=== PATIENT | female | born 1950 | race Caucasian/White ===

== ENCOUNTER → 2024-03-10 15:01 | Outpatient (CLI) | payer MEDICARE, SELFPAY ==
--- NOTE | 2024-03-10 15:03 | DI.RAD.S_ITS ---
PROCEDURE: XR ELBOW RT MIN 3V INDICATIONS: Fall TECHNIQUE: 3 views of the elbow were acquired. COMPARISON: None. FINDINGS: Bones: No fractures or dislocations. No suspicious bony lesions. Soft tissues: No elbow joint effusion. No suspicious soft tissue calcifications. IMPRESSION: No acute bony abnormality or significant joint effusion. Dictated by: Shaquille Rutherford M.D. on 03/10/2024 at 16:14 Approved by: Shaquille Rutherford M.D. on 03/10/2024 at 16:15
--- NOTE | 2024-03-10 15:03 | DI.RAD.S_ITS ---
PROCEDURE: XR SHOULDER RT MIN 2V INDICATIONS: Fall TECHNIQUE: 3 views of the shoulder were acquired. COMPARISON: None. FINDINGS: Bones: No fractures or dislocations. No suspicious bony lesions. Visualized ribs appear intact. Glenohumeral and acromioclavicular joint space narrowing with associated osteophytosis. Surgical anchor in the greater tuberosity. Soft tissues: No suspicious soft tissue calcifications. IMPRESSION: No acute bony abnormality. Moderate to severe shoulder osteoarthritis. Dictated by: Shaquille Rutherford M.D. on 03/10/2024 at 16:15 Approved by: Shaquille Rutherford M.D. on 03/10/2024 at 16:15
== END ==
LOC: RAD 15:03
PROVIDERS: Referring Provider Nurse Practitioner Family; Visit Provider Nurse Practitioner Family
DX: M54.6 Pain in thoracic spine (principal); M25.511 Pain in right shoulder; M19.011 Primary osteoarthritis, right shoulder
CPT/HCPCS: 73030; 73080

== ENCOUNTER → 2024-05-08 07:59 | Outpatient (CLI) | payer MEDICARE, SELFPAY ==
--- NOTE | 2024-05-08 08:01 | DI.MRI.S_ITS ---
PROCEDURE: MR LUMBAR SPINE WO CON INDICATIONS: RADICULOPATHY,CERVICAL AND LUMBAR REGION TECHNIQUE: Noncontrast sagittal T1 spin echo and T2 fast echo, sagittal STIR, and T2 fast spin echo through the lumbar spine. In cases with scoliosis, additional coronal T2 fast spin echo may be performed. COMPARISON: None. FINDINGS: Image quality: Excellent. Alignment and Curvature: Grade 1 anterolisthesis of L4-5. There appears to be transitional anatomy with sacralization of the L5 vertebral body. The 1st non rib-bearing vertebral bodies designated L1.. Bone Marrow: Posterior spinal fixation spanning L4 through S1. Marrow is of normal overall signal. No acute vertebral body compression fractures. Spinal Cord: Conus medullaris terminates at the L1-L2 level. Visualized cord demonstrates normal signal and size. Paraspinous Soft Tissues: No paravertebral masses. T12-L1: Mild facet arthropathy. No central canal or neural foraminal stenosis. L1-L2: Disc desiccation and minimal disc bulge. Facet arthropathy. No central canal stenosis. Uoew-iw-lbmaehiu bilateral neural foraminal stenosis. L2-L3: Disc desiccation and mild diffuse disc bulge. Facet arthropathy and thickening of ligamentum flavum. Moderate to severe central canal stenosis. Narrowing of the lateral recesses with possible impingement of the descending L3 nerve roots. Moderate bilateral neural foraminal stenosis. L3-L4: Disc desiccation and mild disc bulge. Facet hypertrophy. Mild central canal stenosis. Mild bilateral neural foraminal stenosis. L4-L5: Anterolisthesis. Disc desiccation diffuse disc bulge. Mild central canal stenosis. There appears to be severe bilateral neural foraminal stenosis with impingement of the exiting nerve roots. Evaluation is limited secondary to hardware artifact. L5-S1: Transitional level. No central canal stenosis. No high-grade neural foraminal stenosis, however evaluation is limited secondary to hardware artifact. IMPRESSION: 1. Multilevel degenerative changes of the lumbar spine with posterior spinal fixation spanning L4 through S1. Grade 1 anterolisthesis of L4 on L5. 2. Moderate to severe central canal stenosis at L2-L3 with narrowing of the lateral recesses and possible impingement of the descending L3 nerve roots. 3. Likely severe bilateral neural foraminal stenosis at L4-5 with impingement of the exiting nerve roots, evaluation is limited secondary to hardware artifact. 4. Transitional vertebral body anatomy with sacralization of the L5 vertebral body. Recommend correlation with plain film prior to any intervention. Dictated by: Mehdi Baer M.D. on 05/08/2024 at 10:48 Approved by: Mehdi Baer M.D. on 05/08/2024 at 10:54
--- NOTE | 2024-05-08 08:01 | DI.MRI.S_ITS ---
PROCEDURE: MR CERVICAL SPINE WO CON INDICATIONS: RADICULOPATHY,CERVICAL AND LUMBAR REGION TECHNIQUE: Noncontrast sagittal T1 spin echo and T2 fast spin echo, sagittal STIR, foraminal oblique sagittal T2 fast spin echo, and axial gradient echo or T2 fast spin echo through the cervical spine. COMPARISON: None. FINDINGS: Image quality: Excellent. Alignment and Curvature: Straightening and mild reversal of the normal cervical lordosis. Bone Marrow: Ankylosis of the C4 through C6 vertebral bodies with posterior spinal fixation. Marrow demonstrates normal overall signal. Spinal Cord: Visualized spinal cord has normal size and signal. No cerebellar tonsillar herniation. Paraspinous Soft Tissues: No paravertebral masses. Prevertebral soft tissues are normal in thickness. C2-C3: Disc desiccation. No central canal stenosis. Facet uncovertebral arthropathy. Mild bilateral neural foraminal stenosis. C3-C4: Disc desiccation and posterior disc osteophyte complex with mild central disc protrusion. Mild central canal stenosis. Facet uncovertebral arthropathy. Moderate right and moderate to severe left neural foraminal stenosis. C4-C5: Ankylosis. No significant central canal stenosis. Facet arthropathy. Mild bilateral neural foraminal stenosis. C5-C6: Ankylosis. No significant central canal stenosis. Facet arthropathy. Eyvj-rw-jlzkyjlz bilateral neural foraminal stenosis. C6-C7: Disc desiccation and height loss. Posterior disc osteophyte complex. Moderate central canal stenosis. Facet and uncovertebral arthropathy. Severe right and moderate to severe left neural foraminal stenosis. C7-T1: Disc desiccation and mild posterior disc osteophyte complex. No significant central canal or neural foraminal stenosis. IMPRESSION: 1. Multilevel degenerative changes of the cervical spine status post C4 through C6 spinal fusion. 2. Moderate central canal stenosis at C6-C7. 3. Severe right and moderate to severe left neural foraminal stenosis at C6-C7. Moderate right and moderate to severe left neural foraminal stenosis at C3-C4. Dictated by: Mehdi Baer M.D. on 05/08/2024 at 10:36 Approved by: Mehdi Baer M.D. on 05/08/2024 at 10:48
== END ==
LOC: MRI 08:01
PROVIDERS: Referring Provider Acupuncturist; Visit Provider Acupuncturist
DX: M47.22 Other spondylosis with radiculopathy, cervical region (principal); M48.02 Spinal stenosis, cervical region; M47.26 Other spondylosis with radiculopathy, lumbar region; M43.16 Spondylolisthesis, lumbar region; M48.061 Spinal stenosis, lumbar region without neurogenic claudication; M43.27 Fusion of spine, lumbosacral region; Z98.1 Arthrodesis status
CPT/HCPCS: 72141; 72148

== ENCOUNTER → 2024-09-22 12:43 | Outpatient (CLI) | payer MEDICARE, MEDICAID, SELFPAY ==
--- NOTE | 2024-09-22 12:45 | DI.ECHO.S_ITS ---
[facility] : : [id number] : : [place] : : [id number] : : Phone: [phone] Echocardiogram Report + + :Name: YVAN MAJOR Study Date: 09/22/2024 Height: 59 in : :[facility] ReadingLocation: Weight: 170 lb : : Gender: Female BSA: 1.7 m2 : :: 1950 Age: 74 yrs BP: 119/75 mmHg: :Reason For Study: CORONARY ARTERY DISEASE : :Ordering Physician: JADON, : :PATRIZIA Russell Performed By: Phoebe Schwab : :Referring: PATRIZIA HAIRSTON : + + Interpretation Summary The ejection fraction is estimated to be 60-65%. Diastolic parameters suggest probable normal left ventricular diastolic function and normal filling pressures. The right ventricle is normal in size and function. There is mild tricuspid regurgitation. No valvular abnormalities. Pulmonary artery pressures cannot be estimated because of the lack of a measurable TR jet velocity but the IVC suggests a CVP of around 3 mmHg. Procedure: A two-dimensional transthoracic echocardiogram with color flow and Doppler was performed. The study quality was technically adequate. There is no prior echocardiogram noted for this patient. The patient was in sinus rhythm with heart rates between 75-81 bpm during the exam. Left Ventricle: The left ventricle is normal in size and wall thickness. The ejection fraction is estimated to be 60-65%. Diastolic parameters suggest probable normal left ventricular diastolic function and normal filling pressures. Right Ventricle: The right ventricle is normal in size and function. Atria: The left atrial size is normal. Right atrial size is normal. There is no Doppler evidence for an interatrial shunt. Mitral Valve: The mitral valve leaflets appear to open well. There is trace mitral regurgitation. Aortic Valve: The aortic valve is trileaflet. The aortic valve opens well. There is no aortic valve stenosis. No aortic regurgitation is present. Tricuspid Valve: The tricuspid valve leaflets are thin and pliable. There is mild tricuspid regurgitation. Pulmonary artery pressures cannot be estimated because of the lack of a measurable TR jet velocity but the IVC suggests a CVP of around 3 mmHg. Pulmonic Valve: The pulmonic valve leaflets are thin and pliable; valve motion is normal. There is mild pulmonic regurgitation. Great Vessels: The aortic root is normal size. The dimensions of the ascending aorta are normal. The IVC is of normal diameter and collapses greater than 50% with a sniff. This suggests a low right atrial pressure of 3 mm Hg. Pericardium/ Pleura There is no pericardial effusion. There is no pleural effusion. MMode/2D Measurements & Calculations LVIDd: 4.6 cm LVOT diam: 2.1 cm LVIDs: 2.8 cm Ao root diam: 3.2 cm FS: 40.1 % asc Aorta Diam: 3.2 cm IVSd: 0.87 cm Ao Arch Diam (Prox Trans): 2.3 cm LVPWd: 0.80 cm LV rod. diameter/BSA (cm/m^2): 2.7 LV sys. diameter/BSA (cm/m^2): 1.6 LA A2 area: 13.9 cm2 RA long axis: 4.7 cm LA A4 area: 17.5 cm2 RA area: 13.5 cm2 LA length (vol): 5.4 cm RA vol: 33.0 ml LA vol: 38.2 ml RA : 19.2 ml/m2 LA vol index: 22.2 ml/m2 IVC diam: 1.3 cm RVD1 (basal): 3.9 cm RVD2 (mid): 3.1 cm TAPSE: 2.2 cm Doppler Measurements & Calculations Ao V2 max: 149.3 cm/sec LVOT Max Preston: 101.1 cm/sec Ao V2 mean: 103.0 cm/sec LV V1 max P.1 mmHg Ao max P.9 mmHg LV V1 VTI: 23.8 cm Ao mean P.7 mmHg NARDA(I,D): 2.5 cm2 Ao V2 VTI: 32.9 cm NARDA(V,D): 2.3 cm2 sev ratio: 0.72 NARDA indexed to BSA (cm^2/m^2): 1.4 MV E max preston: 85.4 cm/sec TR max preston: 207.5 cm/sec MV A max preston: 82.9 cm/sec TR max P.2 mmHg MV E/A: 1.0 PA V2 max: 110.3 cm/sec Med Peak E' Preston: 11.1 cm/sec PA V2 mean: 72.2 cm/sec E/E' med: 7.7 PA mean P.3 mmHg Lat Peak E' Preston: 12.1 cm/sec PA pr(Accel): 32.8 mmHg E/E' lat: 7.0 E/e' average: 7.4 MV dec time: 0.21 sec SVLVOT): 81.8 ml Reading Physician:08:34 PM
--- NOTE | 2024-09-22 12:45 | DI.NM.S_ITS ---
PROCEDURE: NM NGOC PERF SPECT R&S PHARM Rest and pharmacological stress myocardial perfusion SPECT with gated imaging and ejection fraction RADIOPHARMACEUTICAL: 27.5 mCi Tc-99m tetrafosmin IV at rest and 26.0 mCi Tc-99m tetrafosmin IV at peak effect of pharmacological stress. [id number]-bxkbuhjb was performed. INDICATIONS: CAD TECHNIQUE: Radiopharmaceutical was injected at peak stress test, and also at rest. SPECT images were obtained. SPECT myocardial perfusion images were displayed in short axis, horizontal long axis, and vertical long axis views. Gated images were reviewed using [email or web address] software. COMPARISON: None. CARDIAC STRESS: A pharmacologic stress test was performed under the supervision of an attending staff, using an infusion of regadenoson 0.4 mg IV. Hemodynamic data: There is normal blood pressure and heart rate response to pharmacologic stress. Symptoms: The patient denied anginal chest pain. EKG: No diagnostic changes of ischemia; no ectopy. FINDINGS: Raw data: There is good myocardial uptake of radiotracer. No significant motion artifacts. Czjv-zd-oeemo ratio is 0.73 (normal is less than 0.38 for tetrafosmin tracer). Left ventricle function: Gated images demonstrate normal left ventricular wall thickening. No segmental wall motion abnormalities. No transient ischemic dilation; TID is 0.98 (normal less than 1.3). Left ventricle resting end diastolic volume is 90 mL. Left ventricle stress ejection fraction is >75%; normal range is above 45%. Myocardial perfusion: There is normal distribution of activity in the right and left ventricular myocardium. No fixed or reversible perfusion defects. IMPRESSION: Low risk study. No evidence of pharmacologic induced ischemia or scar. Normal LV size with hyperdynamic function. Dictated by: Patrizia Hairston D.O. on 09/24/2024 at 17:40 Approved by: Patrizia Hairston D.O. on 09/24/2024 at 17:41
== END ==
PROVIDERS: Referring Provider Internal Medicine Cardiovascular Disease; Visit Provider Internal Medicine Cardiovascular Disease
DX: I07.1 Rheumatic tricuspid insufficiency (principal); I25.10 Atherosclerotic heart disease of native coronary artery without angina pectoris
CPT/HCPCS: 78452; 93017; 93306; A9502; J2785

== ENCOUNTER → 2025-02-13 07:52 | Outpatient (CLI) | payer MEDICARE, MEDICAID, SELFPAY ==
--- NOTE | 2025-02-13 07:55 | DI.CT.S_ITS ---
PROCEDURE: CT LUMBAR MYELOGRAM INDICATIONS: LUMBAR RADICULOPATHY TECHNIQUE: After the intrathecal administration of 15 mL intrathecal contrast, 3 mm thick sections acquired from T12 to the sacrum. Sagittal and coronal reformats were then constructed. For radiation dose reduction, the following was used: automated exposure control. COMPARISON: [facility], MR, MR LUMBAR SPINE WO CON, 05/08/2024, 8:52. FINDINGS: Image quality: Excellent. Bones: Mild levocurvature. Grade 1 anterolisthesis of L4 on L5. Grade 1 anterolisthesis of L5 on S1. Posterior spinal fixation spanning L4 through S1. No spondylolysis or spondylolisthesis. No suspicious bony lesions. No acute fractures. The degenerative changes with multilevel disc bulges and facet arthropathy. Soft tissues: No retroperitoneal masses. Visualized aorta demonstrates normal caliber. Atherosclerotic vascular calcifications. Small hiatal hernia. Surgical clips in the epigastric region. Nonobstructing renal stones measuring up to 6 millimeters. Diverticulosis within the visualized colon. T12-L1: No central canal or neural foraminal stenosis. L1-L2: No central canal stenosis. At least mild bilateral neural foraminal stenosis. L2-L3: Moderate to severe central canal stenosis. Moderate bilateral neural foraminal stenosis. L3-L4: Mild central canal stenosis. Mild bilateral neural foraminal stenosis. L4-L5: Mild central canal stenosis. Severe bilateral neural foraminal stenosis. L5-S1: Transitional level. No central canal stenosis. Neural foramina appear patent. Miscellaneous: Small nodular focus within the anterior cauda equina nerve roots at L2-L3 measuring 3 x 2 millimeters (5/31). Nerve roots otherwise appear unremarkable throughout. No nerve root clumping to suggest arachnoiditis. IMPRESSION: Multilevel degenerative changes of the lumbar spine which are overall similar compared to prior MRI. Redemonstration of lower lumbar spine fixation hardware without evidence of hardware complication. Moderate to severe central canal stenosis L2-L3. Severe bilateral neural foraminal stenosis at L4-5. Transitional vertebral body anatomy with sacralization of L5, please refer to plain film prior to any intervention. There appears to be a nodular focus within the anterior cauda quadrant nerve roots at L2-L3 measuring 3 x 2 millimeters, in retrospect this was seen on prior MRI and is stable. 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 Consider follow-up MRI with and without contrast. Dictated by: Mehdi Baer M.D. on 02/15/2025 at 13:08 Approved by: Mehdi Baer M.D. on 02/15/2025 at 13:17
--- NOTE | 2025-02-13 08:20 | DI.RAD.S_ITS ---
PROCEDURE: FL INJECT SPINE FOR CT MYELO INDICATIONS: LUMBAR RADICULOPATHY COMPARISON: [facility], MR, MR LUMBAR SPINE WO CON, 05/08/2024, 8:52. TECHNIQUE: The indications, alternatives, benefits, risks and complications of the procedure were explained to the patient. Written informed consent was obtained and placed in the chart. The patient was placed in a prone position on the fluoroscopy table, and a level was chosen for percutaneous access under fluoroscopic guidance. The skin was prepped and draped in a sterile fashion. After local anaesthetic, a spinal needle was then used to enter the intrathecal space, with return of clear cerebrospinal fluid. 10 mL of Isovue M-300 were administered intrathecally under fluoroscopic visualization. The needle was then withdrawn, and a bandage applied to the puncture site. FINDINGS: Access level: L5-S1 (initial attempts at the L2-3 and L3-4 levels were unsuccessful). Transitional spinal anatomy is noted as described on the prior MRI. Medications: 1% lidocaine for local anaesthesia. Complications: None. Patient was transferred to CT for subsequent CT myelogram. IMPRESSION: Successful fluoroscopically guided administration of iodinated contrast into the lumbar spine central canal for CT myelogram. Approved by: Kai Rodriguez M.D. on 02/13/2025 at 17:05
[2025-02-13 09:49] VITALS: BP 119/57; PULSE 64; RESP 16; TEMP 36.5; O2SAT 96
[2025-02-13 09:51] LABS: INR 1.2 (0.9-1.3); Prothrombin Time 13.3 SECONDS (9.4-12.5)
[2025-02-13 09:57] LABS: Platelet Count 230 X10^3/uL (150-400)
[2025-02-13 10:39] VITALS: BP 123/60; PULSE 74; RESP 16; O2SAT 98
[2025-02-13 11:59] VITALS: BP 104/56; PULSE 72; RESP 16; O2SAT 98
== END ==
PROVIDERS: Visit Provider Radiology Diagnostic Radiology
DX: M47.26 Other spondylosis with radiculopathy, lumbar region (principal); M48.061 Spinal stenosis, lumbar region without neurogenic claudication; Z98.1 Arthrodesis status
CPT/HCPCS: 62284; 72133; 77003; 85049; 85610; Q9967